=== PATIENT | female | born 1995 | race Caucasian/White ===

== ENCOUNTER 2018-12-12 21:52 | Emergency (ER) | payer OTHER ==
--- NOTE | 2018-12-12 21:57 | EDPHY ---
H & P Time Seen by Provider: 12/12/18 21:56 HPI/ROS: HPI CHIEF COMPLAINT: Softball to face. HISTORY OF PRESENT ILLNESS: Patient is a 23-year-old female, she was playing softball this evening. She reports she was covering 2nd base, and somebody through the softball back to 2nd base she went to catch it and hit her in the left side of her face. No LOC. No headache. She does complain of mild pain and swelling to left maxillary region. No eye pain. Denies direct trauma to her eye she states softball hit her directly in the left maxilla. Denies any significant neck pain chest pain or shortness of breath, denies abdominal pain or extremity pain. Past Medical History: History of anxiety Past Surgical History: Denies significant surgical history Social History: Denies drugs alcohol tobacco. Family History: Noncontributory ROS REVIEW OF SYSTEMS: 10 Systems were reviewed and negative with the exception of the elements mentioned in the history of present illness. Exam Constitutional triage nursing summary reviewed, vital signs reviewed, awake/ alert. Eyes normal conjunctivae and sclera, EOMI, PERRLA. HENT face and head: Head exam atraumatic however face exam swelling and mild tender palpation of the left maxilla with an abrasion present, soft tissue swelling noted, no orbital pain on exam, extraocular movement intact, no entrapment, no hyphema, no evidence of globe for eye injury on exam, no crepitus of the mid face, midface stable, normal inspection, atraumatic, moist mucus membranes, no epistaxis, neck supple/ no meningismus, no raccoon eyes. Respiratory clear to auscultation bilaterally, normal breath sounds, no respiratory distress, no wheezing. Cardiovascular rate normal, regular rhythm, no murmur, no edema, distal pulses normal. Gastrointestinal soft, non-tender, no rebound, no guarding, normal bowel sounds, no distension, no pulsatile mass. Genitourinary no CVA tenderness. Musculoskeletal no midline vertebral tenderness, full range of motion, no calf swelling, no tenderness of extremities, no meningismus, good pulses, neurovascularly intact. Skin pink, warm, & dry, no rash, abrasion over left maxillary Neurologic awake, alert and oriented x 3, AAOx3, moves all 4 extremities equally, motor intact, sensory intact, CN II-XII intact, normal cerebellar, normal vision, normal speech. Psychiatric normal mood/affect. Heme/Lymph/Immune no lymphadenopathy. Differential Diagnosis: Includes but is not limited to in a particular order left maxillary fracture, soft tissue swelling, facial fractures Medical Decision Making: Plan for this patient ibuprofen 800 mg for pain control, ice pack, Tylenol 1000 mg for pain control, CT maxillofacial wall fractures. Re-evaluate. Re-evaluation: CT scan maxillofacial shows no evidence of facial fracture there is soft tissue swelling gas underneath from trauma. But no sinus fracture. This was called to me by Dr. Perez. No evidence of facial fracture on CT maxillofacial. Patient re-evaluated at 12:46 a.m. Resting comfortably no acute distress. Feels better after Tylenol Motrin. She has been icing her face she does have significant left-sided facial soft tissue swelling. Her extraocular movement is intact. No entrapment. No globe injury, no proptosis on exam. CT reviewed of the maxillofacial shows no orbital fracture or facial fracture there is significant amount of gas present. Intraorally I did evaluate her do not appreciate a laceration. Nasal exam no septal hematoma no epistaxis. Orbital exam shows no crepitus or significant pain to palpation. Extraocular movement intact. Clinically has soft tissue left side of her face. CT scan head without contrast no acute intracranial abnormality large amount of air in the left intraorbital periorbital and left facial soft tissues no definitive fracture line or intraorbital hematoma identified this could be the result of an undetected nondisplaced fracture of the sinuses orbital floor no definitive fracture identified on CT. Faxed to me at 1:27 a.m. By direct Radiology 1:42 a.m. I went over in detail with her CT results with her. She is comfortable discharge planning. Recommend ice, anti-inflammatory pain medicine , do not blow her nose. Augmentin prescription. Follow up with ENT. She understands return emergency room she develops fever, worsening pain, vomiting, not doing well. Source: Patient Constitutional: Initial Vital Signs Temperature (C) 36.2 C 12/12/18 21:55 Heart Rate 52 L 12/12/18 21:55 Respiratory Rate 20 12/12/18 21:55 Blood Pressure 126/63 H 12/12/18 21:55 O2 Sat (%) 97 12/12/18 21:55 O2 Delivery Mode Room Air Allergies/Adverse Reactions: No Known Allergies Allergy (Unverified 12/12/18 21:54) Home Medications: Medication Instructions Recorded Synthroid 100 mcg (*) 12/12/18 Amoxicillin/Clavulanate Pot 875 mg PO BID #14 tab 12/13/18 [Augmentin 875 MG TAB (*)] Hydrocodone/APAP 5/325 [Brenham 1 - 2 tab PO Q4H PRN #10 tab 12/13/18 5/325] Ibuprofen [Motrin (*)] 800 mg PO Q6-8PRN #14 tab 12/13/18 Medical Decision Making - Data Points Medications Given: Discontinued Medications Acetaminophen (Tylenol) 1,000 mg PO EDNOW ONE Stop: 12/12/18 22:06 Last Admin: 12/12/18 22:16 Dose: 1,000 mg Ibuprofen (Motrin) 800 mg PO EDNOW ONE Stop: 12/12/18 22:06 Last Admin: 12/12/18 22:16 Dose: 800 mg Departure - Departure Disposition: Home, Routine, Self-Care Clinical Impression: Facial contusion Condition: Good Instructions: Hematoma (ED), Facial Contusion (ED) Additional Instructions: 1. Ice your face. 2. Alternate Tylenol/Motrin. 3. Return to the er if worsening symptoms. 4. Please return emergency room if he develops worsening headache, facial pain, vomiting, fever 5. Do not blow your nose 6. Please ice you face over the next 72 hours. Referrals: NONE *PRIMARY CARE P,. [Primary Care Provider] - As per Instructions Lloyd Farnsworth MD [Medical Doctor] - As per Instructions Prescriptions: Amoxicillin/Clavulanate Pot [Augmentin 875 MG TAB (*)] 875 mg PO BID #14 tab Hydrocodone/APAP 5/325 [Brenham 5/325] 1 - 2 tab PO Q4H PRN #10 tab PRN Reason: Pain, Moderate Ibuprofen [Motrin (*)] 800 mg PO Q6-8PRN #14 tab
[2018-12-12] MEDS ORDERED: ACETAMINOPHEN 500 MG TAB PO ONE (22:05)
[2018-12-12] MEDS ORDERED: IBUPROFEN 800 MG TAB PO ONE (22:05)
[2018-12-13 01:30] VITALS: BP 114/63
== END 2018-12-13 02:05 | disposition home or self-care (01) ==
DX: S00.81XA Abrasion of other part of head, initial encounter (principal); W21.11XA Struck by baseball bat, initial encounter; Y99.9 Unspecified external cause status; Y93.64 Activity, baseball